=== PATIENT | male | born 1970 | race Caucasian/White ===

== ENCOUNTER → 2018-04-07 | Outpatient (CLI) | payer MEDICAID | LOC: BMCIMAGING 16:18 → EDSTATUS 16:18 → BMCIMAGING 16:19 | PROVIDERS: ATTEND Orthopaedic Surgery Hand Surgery | DX: S62.325D Displaced fracture of shaft of fourth metacarpal bone, left hand, subsequent encounter for fracture with routine healing (principal) ==